=== PATIENT | female | born 1975 ===

== ENCOUNTER 2019-10-29 12:52 | Inpatient (IN) | payer OTHER ==
[~2019-10-29] VITALS: Ht 165.1 cm; Wt 112.0 kg
[2019-10-29] MEDS ORDERED: CLONAZEPAM0.5 MG (13:13)
--- NOTE | 2019-10-29 13:14 | NUR ---
PTE REFIERE ANSIEDAD DESDE HACE UN TIEMPO SE FRANCIE S/V YSE UBIAC EN AREA DE ESPERA
--- NOTE | 2019-10-29 14:48 | NUR ---
PTE EVALUADA POR LA DRA DELACRUZ QUIEN ORDENA EL [place]. AL MOMENTO SE OBSERVA PTE ANSIOSA, EN CONTINUO MOVIMIENTOS REPETITIVOS Y REPITIENDO LAS MISMAS FRASES EN MULTIPLES OCASIONES. SE ORIENTA SOBRE EL [place] ORDENADO, LO CUAL REFIERE ENTENDER. SE REALIZAN PRUEBAS DE LABORATORIO Y SE ADMINISTRAN MEDICAMENTOS FRANK ORDEN MEDICA Y SIGUIENDO MEDIDAS ASEPTICAS. SE REALIZA EKG, PRESENTADO A LA DRA DELACRUZ. SE UBICA EN AREA DE OBSERVACION, WON NIVEL MAS BAJO, RAMIREZ DE IDENTIFICACION Y BARANDAS ELEVADA POR PRECAUCION.
== END 2019-11-02 14:28 | disposition home or self-care (01) | DRG 644 ==
LOC: ER 12:52 → MEDI 20:05 → SEC-K 20:05 → MEDI 23:10
PROVIDERS: ADMIT Internal Medicine; ATTEND Internal Medicine
PROC: BW4FZZZ Ultrasonography of Neck (ICD-10-PCS; principal; 2019-10-29)
PROC: 4A12X4Z Monitoring of Cardiac Electrical Activity, External Approach (ICD-10-PCS; 2019-10-29)
DX: E05.91 Thyrotoxicosis, unspecified with thyrotoxic crisis or storm (principal); E06.0 Acute thyroiditis; E87.6 Hypokalemia; E03.8 Other specified hypothyroidism; F41.9 Anxiety disorder, unspecified; Z20.828 Contact with and (suspected) exposure to other viral communicable diseases